=== PATIENT | male | born 1960 | race Caucasian/White ===

== ENCOUNTER 2022-04-29 09:05 | Day surgery (SDC) | payer MEDICARE ==
[2022-04-29] VITALS (18 sets, daily range): BP systolic 123–174; BP diastolic 74–123
[~2022-04-29] VITALS: Ht 162.6 cm; Wt 71.2 kg
[~2022-04-29 09:05] MED LIST: ACET-2971 PO; GABA-530 PO; HYDR200T80 PO; LISI20TA28 PO; MELO-102 PO; ceFAZolin inj. 2,000 MG in dextrose 5%-water 100 ML IV ONE; ringers solution, lacted 1,000 ML IV SCH
[2022-04-29 10:50] LABS: BASOPHILS # (AUTO) 0.1 X10'3 (0-0.2); BASOPHILS % (AUTO) 0.8 % (0-1); EOSINOPHILS # (AUTO) 0.3 X10'3 (0-0.9); EOSINOPHILS % (AUTO) 3.8 % (0-6); LYMPHOCYTES # (AUTO) 1.2 X10'3 (1.1-4.8); LYMPHOCYTES % (AUTO) 15.9 % (21-51); MEAN CORPUSCULAR HEMOGLOBIN 31.3 PG (27.0-31.0); MEAN CORPUSCULAR HGB CONC 34.6 g/dL (33.0-36.5); MEAN CORPUSCULAR VOLUME 90.4 FL (78-98); MEAN PLATELET VOLUME 8.9 FL (7.4-10.4); MONOCYTES # (AUTO) 0.7 X10'3 (0-0.9); NEUTROPHILS # (AUTO) 5.4 X10'3 (1.8-7.7); NEUTROPHILS % (AUTO) 70.5 % (42-75); PRE OP HEMATOCRIT 44.1 % (42.0-52.0); PRE OP HEMOGLOBIN 15.2 g/dL (14.0-17.9); PRE OP PLATELET COUNT 253 X10'3 (140-440); RED BLOOD COUNT 4.87 X10'6 (4.70-6.10); RED CELL DISTRIBUTION WIDTH 13.7 % (11.5-14.5)
[2022-04-29 11:04] LABS: PRE OP PROTIME 10.7 SECONDS (9.0-12.0)
[2022-04-29 11:07] LABS: ALBUMIN 3.6 G/DL (3.4-5.0); ALBUMIN/GLOBULIN RATIO 1.1 (1.1-1.5); ALKALINE PHOSPHATASE 65 IU/L (46-116); BLOOD UREA NITROGEN 15 MG/DL (7-18); BUN/CREATININE RATIO 24.2 (5.4-32.0); CALCIUM 8.5 MG/DL (8.5-10.1); CHLORIDE 107 MMOL/L (99-107); CREATININE 0.62 MG/DL (0.60-1.10); PRE OP ALT 15 U/L (30-65); PRE OP ANION GAP 7 (8-16); PRE OP AST 16 U/L (10-37); PRE OP BILIRUB, TOTAL 1.1 MG/DL (0.0-1.0); PRE OP GLUCOSE 97 MG/DL (70-104); PRE OP POTASSIUM 3.9 MMOL/L (3.4-5.1); PRE OP SODIUM 143 MMOL/L (135-145); TOTAL CARBON DIOXIDE 28.7 MMOL/L (24-32); TOTAL PROTEIN 6.9 G/DL (6.4-8.2); eGFR > 90 ML/MIN
[2022-04-29] MEDS ORDERED: fentaNYL/PF 50MCG/1 ML 2ML syringe ONE ×2 (12:55→14:24)
[2022-04-29] MEDS ORDERED: meperidine/PF 25mg/ml syringe IV PRN ×3 (13:10)
[2022-04-29] MEDS ORDERED: morphine 2 MG/ML inj. syringe IV PRN (13:10)
[2022-04-29] MEDS ORDERED: ondansetron/PF 4mg/2ml inj IV PRN (13:10)
[2022-04-29] MEDS ORDERED: ringers solution, lacted 1,000 ML IV SCH (13:10)
[2022-04-29] MEDS ORDERED: proCHLORperazine 10 MG/2 ml inj IV PRN (13:10)
[2022-04-29] MEDS ORDERED: morphine 4 MG/ML inj SYRINge IV PRN (13:10)
[2022-04-29] MEDS ORDERED: BUPIVAcaine 0.5% inj/PF 30 ML ONE (13:13)
[2022-04-29] MEDS ORDERED: sevoflurane 250ml liquid IH ONE (13:15)
[2022-04-29] MEDS ORDERED: LIDOcaine 2% (20mg/ml) 5ml vial ONE (13:21)
[2022-04-29] MEDS ORDERED: rocuronium 10mg/ml inj IV ONE (13:21)
[2022-04-29] MEDS ORDERED: propofol inj 20 ML IV ONE (13:21)
[2022-04-29] MEDS ORDERED: ondansetron/PF 4mg/2ml inj ONE (13:45)
[2022-04-29] MEDS ORDERED: acetaminophen 1,000mg/100ml IV 100 ML IV ONE (13:45)
[2022-04-29] MEDS ORDERED: dexamethasone sod phosphate 4mg/ml inj. ONE (13:45)
[2022-04-29] MEDS ORDERED: BUPIVAcaine 0.5% inj/PF 30 ml vial IJ ONE (13:51)
[2022-04-29] MEDS ORDERED: ePHEDrine 50MG/ML INJ. ONE (13:57)
[2022-04-29] MEDS ORDERED: glycopyrrolate 0.2mg/ml inj ONE (14:51)
[2022-04-29] MEDS ORDERED: neostigmine methylsulfate 1 MG/ML 10ml vial ONE (14:51)
[2022-04-29] MEDS ORDERED: LIDOcaine 2% 10ml TOPICAL JELLY (Urojet) MM STA (17:36)
--- NOTE | 2022-04-29 18:00 | NUR ---
PATIENT WAS UNABLE TO VOID AFTER SURGERY. AFTER NO VOID I BLADDER SCANNED THE PATIENT AND HE HAD GREATER THAN 500ML RESIDUAL. EDUCATED PATIENT ON F/C AND ITS CARE. PLACED A F/C AND SENT THE PATIENT WITH KESSLER WIPES X 3. PATIENT WAS INSTRUCTED TO CALL DR SMITH IN THE AM TO ORGANIZE A TIME TO HAVE THE F/C OUT. PATIENT VERBALIZED AN UNDERSTANDING OF THE TEACH.
--- NOTE | 2022-04-29 18:42 | NUR ---
PATIENT MET DISCHARGE CRITERIA. VSS. IV DC'D WITH NO ISSUES AND PATIENT WAS SENT HOME WITH A F/C DUE TO INABILITY TO VOID PER PROTOCOL. PATIENT EDUCATED AND SENT HOME WITH VICTORIA MENDENHALL. Addendum: 04/29/22 at 1950 by Aicha Berger RN Amended: Links added.
== END 2022-04-29 18:42 | disposition home or self-care (01) ==
LOC: PAS 09:05
PROVIDERS: ATTEND Surgery
DX: K40.90 Unilateral inguinal hernia, without obstruction or gangrene, not specified as recurrent (principal); I10 Essential (primary) hypertension; M06.9 Rheumatoid arthritis, unspecified; F12.90 Cannabis use, unspecified, uncomplicated; Z82.49 Family history of ischemic heart disease and other diseases of the circulatory system; Z88.8 Allergy status to other drugs, medicaments and biological substances; Z98.890 Other specified postprocedural states; Z79.899 Other long term (current) drug therapy; Z79.1 Long term (current) use of non-steroidal anti-inflammatories (NSAID); Z79.01 Long term (current) use of anticoagulants
CPT/HCPCS: 36415; 49650; 80053; 85025; 85610; 85730; 93005; C1758; C1781; J0131; J0690; J1100; J2270; J2405; J2704; J2710; J3010; J3490; J7030; J7060; J7120; S0020; Z7506; Z7508; Z7512; A4215; A4618